=== PATIENT | male | born 1965 | race American Indian/Alaskan Native ===

== ENCOUNTER 2016-08-09 16:13 | Emergency (ER) | payer MEDICAID | END 2016-08-09 17:07 | disposition left against medical advice (07) | LOC: JP.ED 16:13 | DX: Z53.21 Procedure and treatment not carried out due to patient leaving prior to being seen by health care provider (principal) ==

== ENCOUNTER 2016-08-12 20:01 | Inpatient (IN) | payer MEDICAID ==
[2016-08-12] MEDS ORDERED: HYDROmorphone 0.5 MG/0.5 ML Syringe IVPUSH ONE ×2 (20:40→23:14)
[2016-08-12] MEDS ORDERED: Sodium Chloride 0.9% 1,000 ML IV SCH (20:45)
--- NOTE | 2016-08-12 20:46 | EDM.PDOC ---
ED HPI GENERAL MEDICAL PROBLEM - General Chief Complaint: Abdominal Pain Stated Complaint: abd pain Time Seen by Provider: 08/12/16 20:41 Source of Information: Reports: Patient History Limitations: Reports: Other (pt has been drinking but quit yesterday. ) - History of Present Illness INITIAL COMMENTS - FREE TEXT/NARRATIVE: Pt states he feels like his liver is failing. He has been vomiting coffee ground material and has been passing black looking stool. He had been doing some vomiting. Onset: Gradual Duration: Day(s): Location: Reports: Abdomen, Other ( Pt is having severe upper abdomanal pain. ) Associated Symptoms: Reports: Loss of Appetite, Nausea/Vomiting, Other ( loose dark stools. ) Left Abdomen Pain Score (Numeric/FACES): 9 - Related Data Allergies Allergy/AdvReac Type Severity Reaction Status Date / Time No Known Allergies Allergy Verified 08/12/16 20:14 Home Meds: Home Meds Gabapentin [Gabapentin] 400 mg PO BID 11/24/14 [History] Lisinopril [Lisinopril] 20 mg PO DAILY 11/24/14 [History] Buprenorphine HCl/Naloxone HCl [Suboxone 4 mg-1 mg Sl Film] 1 each SL QID [History] buPROPion [Wellbutrin XL] 150 mg PO BID 08/12/16 [History] Past Medical History Cardiovascular History: Reports: Hypertension Gastrointestinal History: Reports: Other (See Below) Other Gastrointestinal History: Past abdomenal pain Neurological History: Reports: Concussion Psychiatric History: Reports: Addiction, Depression Other Psychiatric History: ETOH addiction - Past Surgical History Other HEENT Surgeries/Procedures: Jaw Surgery GI Surgical History: Reports: Appendectomy Other Musculoskeletal Surgeries/Procedures:: Jaw Surgery Social & Family History - Tobacco Use Smoking Status *Q: Current Every Day Smoker Years of Tobacco use: 35 Packs/Tins Daily: 1 Used Tobacco, but Quit: No Second Hand Smoke Exposure: Yes - Caffeine Use Caffeine Use: Reports: Soda - Alcohol Use Days Per Week of Alcohol Use: 7 Number of Drinks Per Day: 6 Total Drinks Per Week: 42 - Recreational Drug Use Recreational Drug Use: No ED ROS GENERAL - Review of Systems Review Of Systems: See Below Constitutional: Reports: Weakness, Decreased Appetite HEENT: Reports: No Symptoms Respiratory: Reports: No Symptoms Cardiovascular: Reports: No Symptoms Endocrine: Reports: No Symptoms GI/Abdominal: Reports: Other (pt has pain in the upper abdoman. ) : Reports: No Symptoms Musculoskeletal: Reports: No Symptoms Skin: Reports: No Symptoms ED EXAM, GI/ABD - Physical Exam Exam: See Below Text/Narrative:: pt arrived with severe pain in his upper abdoman. he has been vomiting dark material and he has been passing some very dark stools. He has been drinking heavily but has not drank since yesterday. He denies street drugs. Exam Limited By: Other (pt is mildly intoxicated but is able to give a history.) General Appearance: Alert, Anxious, Moderate Distress Eyes: Bilateral: Normal Appearance, EOMI Ears: Normal TMs Nose: Normal Inspection Throat/Mouth: Normal Inspection Head: Atraumatic Neck: Normal Inspection Respiratory/Chest: No Respiratory Distress Cardiovascular: Regular Rate, Rhythm, Tachycardia GI/Abdominal: Tenderness, Other ( pt does not have a guarded abdoman. ) (Male) Exam: Deferred Rectal (Males) Exam: Other ( no masses present. There was some very smelling black looking fluid coming form the rectum that was positive for blood. ) Back Exam: Normal Inspection Extremities: Normal Inspection Neurological: Alert, Oriented, Normal Cognition, Other ( uncomfortable appearing ) Course - Vital Signs Last Recorded V/S: Last Vital Signs Temp 36.6 C 08/12/16 20:17 Pulse 110 H 08/12/16 20:17 Resp 16 08/12/16 20:17 BP 115/71 08/12/16 20:17 Pulse Ox 94 L 08/12/16 20:17 - Orders/Labs/Meds Orders: Active Orders 24 hr Category Date Time Status CRP [C-REACTIVE PROTEIN] [CHEM] Stat Lab 08/12/16 21:06 Ordered DRUG SCREEN, URINE [URCHEM] Stat Lab 08/12/16 20:30 Uncollected UA W/MICROSCOPIC [URIN] Urgent Lab 08/12/16 20:13 Uncollected Sodium Chloride 0.9% [Normal Saline] 1,000 ml Med 08/12/16 20:45 Active IV ASDIRECTED Medication Orders Sodium Chloride (Normal Saline) 1,000 mls @ 999 mls/hr IV ASDIRECTED HEIDY Last Admin: 08/12/16 20:47 Dose: 999 mls/hr Labs: Laboratory Tests 05/28/17 05/28/17 05/28/17 Range/Units 20:24 20:24 20:24 WBC 11.3 H (4.5-11.0) K/uL RBC 2.87 L (4.30-5.90) M/uL Hgb 9.5 L (12.0-15.0) g/dL Hct 26.8 L (40.0-54.0) % MCV 93 (80-98) fL MCH 33 H (27-31) pg MCHC 35 (32-36) % Plt Count 164 (150-400) K/uL Neut % (Auto) 64 (36-66) % Lymph % (Auto) 26 (24-44) % [place] % (Auto) 10 H (2-6) % Eos % (Auto) 0 L (2-4) % Baso % (Auto) 1 (0-1) % APTT (27.0-36.0) sec Sodium 134 L (140-148) mmol/L Potassium 3.4 L (3.6-5.2) mmol/L Chloride 98 L (100-108) mmol/L Carbon Dioxide 28 (21-32) mmol/L Anion Gap 11.4 (5.0-14.0) mmol/L BUN 12 (7-18) mg/dL Creatinine 0.7 L (0.8-1.3) mg/dL Est Cr Clr Drug Dosing TNP Estimated GFR (MDRD) > 60 (>60) Glucose 162 H (74-106) mg/dL Calcium 7.3 L (8.5-10.1) mg/dL Total Bilirubin 0.8 (0.2-1.0) mg/dL AST 124 H (15-37) U/L ALT 58 (12-78) U/L Alkaline Phosphatase 99 (46-116) U/L Total Protein 6.3 L (6.4-8.2) g/dL Albumin 2.6 L (3.4-5.0) g/dL Globulin 3.7 H (2.3-3.5) g/dL Albumin/Globulin Ratio 0.7 L (1.2-2.2) Lipase 231 (73-393) U/L Ethyl Alcohol mg/dL 08/12/16 08/12/16 Range/Units 20:33 20:51 WBC (4.5-11.0) K/uL RBC (4.30-5.90) M/uL Hgb (12.0-15.0) g/dL Hct (40.0-54.0) % MCV (80-98) fL MCH (27-31) pg MCHC (32-36) % Plt Count (150-400) K/uL Neut % (Auto) (36-66) % Lymph % (Auto) (24-44) % [place] % (Auto) (2-6) % Eos % (Auto) (2-4) % Baso % (Auto) (0-1) % APTT 25.7 L (27.0-36.0) sec Sodium (140-148) mmol/L Potassium (3.6-5.2) mmol/L Chloride (100-108) mmol/L Carbon Dioxide (21-32) mmol/L Anion Gap (5.0-14.0) mmol/L BUN (7-18) mg/dL Creatinine (0.8-1.3) mg/dL Est Cr Clr Drug Dosing Estimated GFR (MDRD) (>60) Glucose (74-106) mg/dL Calcium (8.5-10.1) mg/dL Total Bilirubin (0.2-1.0) mg/dL AST (15-37) U/L ALT (12-78) U/L Alkaline Phosphatase (46-116) U/L Total Protein (6.4-8.2) g/dL Albumin (3.4-5.0) g/dL Globulin (2.3-3.5) g/dL Albumin/Globulin Ratio (1.2-2.2) Lipase (73-393) U/L Ethyl Alcohol 112 mg/dL Meds: Medications Generic Name Dose Route Start Last Admin Trade Name Freq PRN Reason Stop Dose Admin Sodium Chloride 1,000 mls @ 999 mls/hr 08/12/16 20:45 08/12/16 20:47 Normal Saline IV 999 mls/hr ASDIRECTED HEIDY Administration Discontinued Medications Generic Name Dose Route Start Last Admin Trade Name Freq PRN Reason Stop Dose Admin Hydromorphone HCl 0.5 mg 08/12/16 20:40 08/12/16 20:49 Dilaudid IVPUSH 08/12/16 20:41 0.5 mg ONETIME ONE Administration Pantoprazole Sodium 40 mg 08/12/16 20:57 Protonix Iv IVPUSH 08/12/16 20:58 ONETIME ONE - Re-Assessments/Exams Free Text/Narrative Re-Assessment/Exam: 08/12/16 21:05 pt has a positive stool for blood. His hg is 9.5. His lipase is normal. He has been vomiting dark material. 08/12/16 21:13 Departure - Departure Time of Disposition: 21:13 Disposition: Admitted As Inpatient 66 Condition: fair Clinical Impression: GI bleeding, H/O ETOH abuse - Discharge Information Forms: ED Department Discharge Care Plan Goals: Admit to Dr Jon - My Orders Last 24 Hours: My Active Orders 08/12/16 20:13 UA W/MICROSCOPIC [URIN] Urgent 08/12/16 20:30 DRUG SCREEN, URINE [URCHEM] Stat 08/12/16 20:45 Sodium Chloride 0.9% [Normal Saline] 1,000 ml IV ASDIRECTED 08/12/16 21:06 CRP [C-REACTIVE PROTEIN] [CHEM] Stat - Assessment/Plan Last 24 Hours: My Active Orders 08/12/16 20:13 UA W/MICROSCOPIC [URIN] Urgent 08/12/16 20:30 DRUG SCREEN, URINE [URCHEM] Stat 08/12/16 20:45 Sodium Chloride 0.9% [Normal Saline] 1,000 ml IV ASDIRECTED 08/12/16 21:06 CRP [C-REACTIVE PROTEIN] [CHEM] Stat
[2016-08-12] MEDS ORDERED: Pantoprazole 40 MG Vial IVPUSH ONE ×2 (20:57→23:15)
[2016-08-12] MEDS ORDERED: Promethazine 25 MG Tab PO PRN (21:29)
[2016-08-12] MEDS ORDERED: Iopamidol 612 MG/ML 100 ML Bottle IV PRN (22:06)
[2016-08-12] MEDS ORDERED: Sodium Chloride 0.9% 80 ML IV SCH (22:15)
--- NOTE | 2016-08-12 22:43 | PCM.HP ---
H&P History of Present Illness - General Date of Service: 08/12/16 Admit Problem/Dx: Admission Diagnosis/Problem Admission Diagnosis/Problem Bleeding Source of Information: Patient History Limitations: Reports: No Limitations - History of Present Illness Initial Comments - Free Text/Narative: 50-year-old male with past medical history of opioid abuse, chronic back pain previously on methadone following with pain clinic at present has been taking Suboxone, gabapentin, significant alcohol abuse, liver cirrhosis, drug abuse, smoker, marijuana user, hypertension came to the ED with the concerns of bright red bleeding per rectum along with melena. Patient states that the bleeding started since last 2 days and associated with abdominal pain since last 3 days, cramping type pain, 4-5/10 in intensity, intermittent, patient denies any diarrhea, constipation. Last bowel movement was one day prior to the ED visit. Patient denies any recent fever, sick contacts. Patient doesn't have any PCP and not following with any GI physician for liver cirrhosis and alcohol abuse. Patient says that his last alcohol intake was yesterday. Denies any chest pain , breathing difficulty, exertional chest pain and palpitations. Patient denies any joint pains, skin rashes. Patient never followed with GI physician and denies any previous endoscopies, colonoscopies. Patient denies any recent weight loss. Patient CODE STATUS is full code In the Ed patient received 1000 mL of IV bolus and the dilaudid medication for the pain. Patient workup showed lipase is within normal limits, slight WBC elevation with hyponatremia, hypokalemia. Patient stool occult blood test is positive. Patient blood alcohol levels are positive, uterine marijuana drug screen is positive patient's CT did not show any acute findings. Other review of systems are not significant Left Abdomen Pain Score (Numeric/FACES): 9 - Related Data Allergies/Adverse Reactions: Allergies Allergy/AdvReac Type Severity Reaction Status Date / Time No Known Allergies Allergy Verified 08/12/16 20:14 Home Medications: Home Meds Gabapentin [Gabapentin] 400 mg PO BID 11/24/14 [History] Lisinopril [Lisinopril] 20 mg PO DAILY 11/24/14 [History] Buprenorphine HCl/Naloxone HCl [Suboxone 4 mg-1 mg Sl Film] 1 each SL QID [History] buPROPion [Wellbutrin XL] 150 mg PO BID 08/12/16 [History] Past Medical History Cardiovascular History: Reports: Hypertension Gastrointestinal History: Reports: Other (See Below) Other Gastrointestinal History: Past abdomenal pain Neurological History: Reports: Concussion Psychiatric History: Reports: Addiction, Depression Other Psychiatric History: ETOH addiction - Past Surgical History Other HEENT Surgeries/Procedures: Jaw Surgery GI Surgical History: Reports: Appendectomy Other Musculoskeletal Surgeries/Procedures:: Jaw Surgery Social & Family History - Tobacco Use Smoking Status *Q: Current Every Day Smoker Years of Tobacco use: 35 Packs/Tins Daily: 1 Used Tobacco, but Quit: No Second Hand Smoke Exposure: Yes - Caffeine Use Caffeine Use: Reports: Soda - Alcohol Use Days Per Week of Alcohol Use: 7 Number of Drinks Per Day: 6 Total Drinks Per Week: 42 - Recreational Drug Use Recreational Drug Use: No H&P Review of Systems - Review of Systems: Review Of Systems: See Below General: Reports: Weakness, Fatigue, Decreased Appetite, Weight Gain. Denies: Fever, Chills, Malaise, Night Sweats, Diaphoresis, Weight Loss HEENT: Reports: No Symptoms Pulmonary: Denies: Shortness of Breath, Wheezing, Pleuritic Chest Pain, Cough, Sputum Cardiovascular: Reports: Edema. Denies: Chest Pain, Palpitations, Dyspnea on Exertion, Orthopnea, Lightheadedness Gastrointestinal: Reports: Abdominal Pain, Anorexia, Black Stool, Bloody Stool, Constipation, Decreased Appetite, Distension, Melena, Nausea. Denies: Diarrhea , Difficulty Swallowing, Flatus, Hematemesis, Mucous in Stool, Stool Incontinence, Vomiting Genitourinary: Denies: Dysuria, Frequency Musculoskeletal: Reports: Neck Pain, Back Pain. Denies: Shoulder Pain, Arm Pain Skin: Denies: Cyanosis, Jaundice, Mottled, Pallor Psychiatric: Denies: Confusion, Depression, Mood Lability Neurological: Denies: Confusion, Dizziness, Headache Hematologic/Lymphatic: Reports: Anemia. Denies: Easy Bleeding, Easy Bruising Immunologic: Denies: Anaphylaxis, Food Allergy Exam - Exam Exam: See Below - Vital Signs Vital Signs: Last Vital Signs Temp 36.6 C 08/12/16 20:17 Pulse 102 H 08/12/16 22:08 Resp 15 08/12/16 22:08 BP 129/69 08/12/16 22:08 Pulse Ox 97 08/12/16 22:08 Weight: 117.48 kg - Exam Quality Assessment: No: Supplemental Oxygen General: Alert, Oriented, Cooperative, Moderate Distress Neck: Supple, Trachea Midline Lungs: Clear to Auscultation, Normal Respiratory Effort Cardiovascular: Regular Rate, Regular Rhythm, Tachycardia Abdomen: Normal Bowel Sounds, Soft, Distention, Tenderness, Hyperactive Bowel Sounds, Hepatomegaly. No: Organomegaly, Guarding, Rigidity, Rebound, Absent Bowel Sounds, Splenomegaly Extremities: Normal Pulses, Edema Skin: Warm, Dry, Intact Neurological: Cranial Nerves Intact, Reflexes Equal Bilateral Neuro Extensive - Mental Status: Alert, Memory Intact Neuro Extensive - Motor, Sensory, Reflexes: Normal Reflexes - Patient Data Lab Results last 24 hrs: Laboratory Results - last 24 hr 08/12/16 08/12/16 08/12/16 Range/Units 20:24 20:24 20:24 WBC 11.3 H (4.5-11.0) K/uL RBC 2.87 L (4.30-5.90) M/uL Hgb 9.5 L (12.0-15.0) g/dL Hct 26.8 L (40.0-54.0) % MCV 93 (80-98) fL MCH 33 H (27-31) pg MCHC 35 (32-36) % Plt Count 164 (150-400) K/uL Neut % (Auto) 64 (36-66) % Lymph % (Auto) 26 (24-44) % [place] % (Auto) 10 H (2-6) % Eos % (Auto) 0 L (2-4) % Baso % (Auto) 1 (0-1) % APTT (27.0-36.0) sec Sodium 134 L (140-148) mmol/L Potassium 3.4 L (3.6-5.2) mmol/L Chloride 98 L (100-108) mmol/L Carbon Dioxide 28 (21-32) mmol/L Anion Gap 11.4 (5.0-14.0) mmol/L BUN 12 (7-18) mg/dL Creatinine 0.7 L (0.8-1.3) mg/dL Est Cr Clr Drug Dosing TNP Estimated GFR (MDRD) > 60 (>60) Glucose 162 H (74-106) mg/dL Calcium 7.3 L (8.5-10.1) mg/dL Total Bilirubin 0.8 (0.2-1.0) mg/dL AST 124 H (15-37) U/L ALT 58 (12-78) U/L Alkaline Phosphatase 99 (46-116) U/L C-Reactive Protein (0.0-0.3) mg/dL Total Protein 6.3 L (6.4-8.2) g/dL Albumin 2.6 L (3.4-5.0) g/dL Globulin 3.7 H (2.3-3.5) g/dL Albumin/Globulin Ratio 0.7 L (1.2-2.2) Lipase 231 (73-393) U/L Ethyl Alcohol mg/dL 08/12/16 08/12/16 08/12/16 Range/Units 20:33 20:51 21:06 WBC (4.5-11.0) K/uL RBC (4.30-5.90) M/uL Hgb (12.0-15.0) g/dL Hct (40.0-54.0) % MCV (80-98) fL MCH (27-31) pg MCHC (32-36) % Plt Count (150-400) K/uL Neut % (Auto) (36-66) % Lymph % (Auto) (24-44) % [place] % (Auto) (2-6) % Eos % (Auto) (2-4) % Baso % (Auto) (0-1) % APTT 25.7 L (27.0-36.0) sec Sodium (140-148) mmol/L Potassium (3.6-5.2) mmol/L Chloride (100-108) mmol/L Carbon Dioxide (21-32) mmol/L Anion Gap (5.0-14.0) mmol/L BUN (7-18) mg/dL Creatinine (0.8-1.3) mg/dL Est Cr Clr Drug Dosing Estimated GFR (MDRD) (>60) Glucose (74-106) mg/dL Calcium (8.5-10.1) mg/dL Total Bilirubin (0.2-1.0) mg/dL AST (15-37) U/L ALT (12-78) U/L Alkaline Phosphatase (46-116) U/L C-Reactive Protein 0.32 H (0.0-0.3) mg/dL Total Protein (6.4-8.2) g/dL Albumin (3.4-5.0) g/dL Globulin (2.3-3.5) g/dL Albumin/Globulin Ratio (1.2-2.2) Lipase (73-393) U/L Ethyl Alcohol 112 mg/dL Result Diagrams: 08/13/16 05:00 08/13/16 05:00 Morales Results last 24 hrs: Microbiology 08/12/16 20:50 Stool Occult Blood (MORALES) - Final Stool / Feces *Q Meaningful Use (ADM) - VTE *Q VTE Criteria *Q: - Stroke *Q Stroke Criteria *Q: - AMI *Q AMI Criteria *Q: - Problem List (1) Abdominal pain SNOMED Code(s): 44131904 ICD Code: R10.9 - UNSPECIFIED ABDOMINAL PAIN Status: Acute Current Visit : Yes (2) Nausea SNOMED Code(s): 254128233 ICD Code: R11.0 - NAUSEA Status: Acute Current Visit: Yes (3) Marijuana abuse SNOMED Code(s): 32832309 ICD Code: F12.10 - CANNABIS ABUSE, UNCOMPLICATED Status: Acute Current Visit: Yes (4) Hypertension SNOMED Code(s): 46287105 ICD Code: I10 - ESSENTIAL (PRIMARY) HYPERTENSION Status: Acute Current Visit: Yes (5) Drug abuse, opioid type SNOMED Code(s): 7792634 ICD Code: F11.10 - OPIOID ABUSE, UNCOMPLICATED Status: Acute Current Visit: Yes (6) ALC (alcoholic liver cirrhosis) SNOMED Code(s): 221666125, 258049082 ICD Code: K70.30 - ALCOHOLIC CIRRHOSIS OF LIVER WITHOUT ASCITES Status: Acute Current Visit: Yes (7) Portal hypertension SNOMED Code(s): 93392668 ICD Code: K76.6 - PORTAL HYPERTENSION Status: Acute Current Visit: Yes (8) GI bleeding SNOMED Code(s): 88502127 ICD Code: K92.2 - GASTROINTESTINAL HEMORRHAGE, UNSPECIFIED Status: Acute Current Visit: Yes (9) H/O ETOH abuse SNOMED Code(s): 158327892 ICD Code: Z87.898 - PERSONAL HISTORY OF OTHER SPECIFIED CONDITIONS Status: Acute Current Visit: Yes Problem List Initiated/Reviewed/Updated: Yes Orders Last 24hrs: 50-year-old male with past medical history of significant alcohol abuse, chronic liver cirrhosis, portal hypertension, recurrent GI bleed, drug abuse, opiate abuse, chronic back pain, previous history of methadone use came to the ED with the complaining of abdominal pain associated with GI bleed, melena and diagnosed with alcohol-induced acute liver failure and acute GI bleeding and admitted into the inpatient service for further management (6) ALC (alcoholic liver cirrhosis) (7) Portal hypertension (8) GI bleeding (9) H/O ETOH abuse (5) Drug abuse, opioid type (1) Abdominal pain (2) Nausea (3) Marijuana abuse Patient complaining of abdominal pain at periumbilical area Patient CT showed chronic cirrhosis along with portal hypertension Patient had rectal bleeding along with melena and the occult blood test is positive Plan is to place him on pantoprazole drip Recheck H&H in 4 hours, admission CBC showed hemoglobin is 9.7 patient denies any chest pain, exertional chest pain, EKG showed sinus tachycardia We get ammonia, thiamine, B12, folate levels We'll consider starting lactulose based on ammonia levels With supplemental vitamins as per lab results Will place him on CIWA protocol and will treat with morphine 2 mg every 8 hourly as needed for pain with the concerns of previous opioid abuse We'll discontinue Tylenol Will repeat CBC, CMP tomorrow Consulted surgery for possible endoscopic, colonoscopy Will follow the lab results IV fluids for maintenance, nothing by mouth for now (4) Hypertension We will hold on blood pressure medication at this point GI prophylaxis pantoprazole drip, DVT prophylaxis mechanical CODE STATUS full code IV fluids NS with 20 mg KCl 100 mL per hour Diet nothing by mouth
[2016-08-12] MEDS ORDERED: Pantoprazole 40 MG in Sodium Chloride 0.9% 100 ML IV SCH (23:00)
[2016-08-12] MEDS ORDERED: Acetaminophen 650 MG Supp RECTAL PRN (23:18)
[2016-08-13] MEDS: NS + KCl 20mEq/L 1,000 ML IV SCH ×3 (00:09→22:10)
[2016-08-13] MEDS ORDERED: Sodium Chloride 0.9% 100 ML with Pantoprazole 80 MG IV SCH ×2 (02:30)
[2016-08-13] MEDS ORDERED: Pantoprazole 80 MG in Sodium Chloride 0.9% 100 ML IV SCH ×2 (02:45→12:45)
[2016-08-13] MEDS: Morphine 2 MG/ML Syringe IVPUSH PRN ×3 (05:36→22:09)
[2016-08-13] MEDS ORDERED: Pantoprazole 40 MG Vial IVPUSH SCH (09:00)
[2016-08-13] MEDS ORDERED: Midazolam 1 MG/ML 2 ML SDV ONE (09:22)
[2016-08-13] MEDS ORDERED: Propofol 200 MG/20 ML SDV ONE (09:22)
[2016-08-13] MEDS ORDERED: fentaNYL 100 MCG/2 ML SDV ONE (09:22)
--- NOTE | 2016-08-13 12:02 | PCM.PN ---
- General Info Date of Service: 08/13/16 Functional Status: Reports: pain controlled, ambulating, urinating - Review of Systems General: Reports: No Symptoms Pulmonary: Reports: no symptoms Cardiovascular: Reports: No Symptoms Gastrointestinal: Reports: Abdominal pain, Melena. Denies: Constipation, Diarrhea, Difficulty swallowing, Hematochezia, Nausea, Vomiting Systems Review Comment:: This patient is a 50-year-old gentleman who was admitted through the emergency department last night for further evaluation and management of epigastric and left upper quadrant abdominal pain as well as probable GI bleed. He had a history of nausea vomiting with melenic-appearing stools and coffee-ground emesis. Since admission hemoglobin has dropped only slightly, likely secondary to dilution from hydration. EGD was performed this morning by Dr. Grajeda and showed no significant abnormalities other than a plaque at the esophagogastric junction. Patient is willing to proceed with further evaluation including colonoscopy. He has a long-standing history of alcohol abuse and has been drinking heavily over the past week. He has started to show mild evidence of alcohol withdrawal. - Patient Data Vitals - most recent: Last Vital Signs Temp 97.3 F 08/13/16 10:30 Pulse 85 08/13/16 10:45 Resp 18 08/13/16 10:45 BP 138/74 08/13/16 10:45 Pulse Ox 96 08/13/16 10:55 Weight - most recent: 252 lb I&O - last 24 hours: Intake & Output 08/12/16 08/13/16 08/13/16 22:59 06:59 14:59 Intake Total 587 100 Output Total 300 Balance 287 100 Lab Results last 24 hrs: Laboratory Results - last 24 hr 08/12/16 08/12/16 08/12/16 Range/Units 22:44 22:46 22:46 WBC (4.5-11.0) K/uL RBC (4.30-5.90) M/uL Hgb (12.0-15.0) g/dL Hct (40.0-54.0) % MCV (80-98) fL MCH (27-31) pg MCHC (32-36) % Plt Count (150-400) K/uL PT (9.5-12.0) sec INR (0.80-1.20) Sodium (140-148) mmol/L Potassium (3.6-5.2) mmol/L Chloride (100-108) mmol/L Carbon Dioxide (21-32) mmol/L Anion Gap (5.0-14.0) mmol/L BUN (7-18) mg/dL Creatinine (0.8-1.3) mg/dL Est Cr Clr Drug Dosing mL/min Estimated GFR (MDRD) (>60) Glucose (74-106) mg/dL Calcium (8.5-10.1) mg/dL Total Bilirubin (0.2-1.0) mg/dL AST (15-37) U/L ALT (12-78) U/L Alkaline Phosphatase (46-116) U/L Ammonia 70 H (11-32) mmol/L Total Protein (6.4-8.2) g/dL Albumin (3.4-5.0) g/dL Globulin (2.3-3.5) g/dL Albumin/Globulin Ratio (1.2-2.2) Vitamin B12 (193-986) pg/ml Folate (8.6-58.9) ng/ml Urine Color Yellow Urine Appearance Clear Urine pH 6.0 (4.5-8.0) Ur Specific [place] 1.015 (1.008-1.030) Urine Protein Negative (NEGATIVE) mg/dL Urine Glucose (UA) Normal (NEGATIVE) mg/dL Urine Ketones Negative (NEGATIVE) mg/dL Urine Occult Blood Negative (NEGATIVE) Urine Nitrite Negative (NEGAITVE) Urine Bilirubin Small (NEGATIVE) Urine Urobilinogen >=12 H (NORMAL) mg/dL Ur Leukocyte Esterase Negative (NEGATIVE) Urine RBC Not seen (0-5) Urine WBC Not seen (0-5) Ur Epithelial Cells Not seen Amorphous Sediment Not seen Urine Bacteria Not seen Urine Mucus Rare Urine Opiates Screen Positive H (NEGATIVE) Ur Oxycodone Screen Negative (NEGATIVE) Urine Methadone Screen Negative (NEGATIVE) Ur Propoxyphene Screen Negative (NEGATIVE) Ur Barbiturates Screen Negative (NEGATIVE) Ur Tricyclics Screen Negative (NEGATIVE) Ur Phencyclidine Scrn Negative (NEGATIVE) Ur Amphetamine Screen Negative (NEGATIVE) U Methamphetamines Scrn Negative (NEGATIVE) Urine MDMA Screen Negative (NEGATIVE) U Benzodiazepines Scrn Negative (NEGATIVE) U Cocaine Metab Screen Negative (NEGATIVE) U Marijuana (THC) Screen Positive H (NEGATIVE) Blood Type Gel Antibody Screen Crossmatch 08/12/16 08/13/16 08/13/16 Range/Units 22:47 02:00 05:00 WBC (4.5-11.0) K/uL RBC (4.30-5.90) M/uL Hgb 8.9 L (12.0-15.0) g/dL Hct 25.6 L (40.0-54.0) % MCV (80-98) fL MCH (27-31) pg MCHC (32-36) % Plt Count (150-400) K/uL PT 13.0 H (9.5-12.0) sec INR 1.22 H (0.80-1.20) Sodium 135 L (140-148) mmol/L Potassium 3.6 (3.6-5.2) mmol/L Chloride 100 (100-108) mmol/L Carbon Dioxide 28 (21-32) mmol/L Anion Gap 10.6 (5.0-14.0) mmol/L BUN 12 (7-18) mg/dL Creatinine 0.8 (0.8-1.3) mg/dL Est Cr Clr Drug Dosing 121.25 mL/min Estimated GFR (MDRD) > 60 (>60) Glucose 139 H (74-106) mg/dL Calcium 7.3 L (8.5-10.1) mg/dL Total Bilirubin 1.0 (0.2-1.0) mg/dL AST 114 H (15-37) U/L ALT 53 (12-78) U/L Alkaline Phosphatase 94 (46-116) U/L Ammonia (11-32) mmol/L Total Protein 6.0 L (6.4-8.2) g/dL Albumin 2.5 L (3.4-5.0) g/dL Globulin 3.5 (2.3-3.5) g/dL Albumin/Globulin Ratio 0.7 L (1.2-2.2) Vitamin B12 396 (193-986) pg/ml Folate 4.2 L (8.6-58.9) ng/ml Urine Color Urine Appearance Urine pH (4.5-8.0) Ur Specific [place] (1.008-1.030) Urine Protein (NEGATIVE) mg/dL Urine Glucose (UA) (NEGATIVE) mg/dL Urine Ketones (NEGATIVE) mg/dL Urine Occult Blood (NEGATIVE) Urine Nitrite (NEGAITVE) Urine Bilirubin (NEGATIVE) Urine Urobilinogen (NORMAL) mg/dL Ur Leukocyte Esterase (NEGATIVE) Urine RBC (0-5) Urine WBC (0-5) Ur Epithelial Cells Amorphous Sediment Urine Bacteria Urine Mucus Urine Opiates Screen (NEGATIVE) Ur Oxycodone Screen (NEGATIVE) Urine Methadone Screen (NEGATIVE) Ur Propoxyphene Screen (NEGATIVE) Ur Barbiturates Screen (NEGATIVE) Ur Tricyclics Screen (NEGATIVE) Ur Phencyclidine Scrn (NEGATIVE) Ur Amphetamine Screen (NEGATIVE) U Methamphetamines Scrn (NEGATIVE) Urine MDMA Screen (NEGATIVE) U Benzodiazepines Scrn (NEGATIVE) U Cocaine Metab Screen (NEGATIVE) U Marijuana (THC) Screen (NEGATIVE) Blood Type Gel Antibody Screen Crossmatch 08/13/16 08/13/16 Range/Units 05:00 05:00 WBC 8.8 (4.5-11.0) K/uL RBC 2.63 L (4.30-5.90) M/uL Hgb 8.9 L (12.0-15.0) g/dL Hct 24.9 L (40.0-54.0) % MCV 95 (80-98) fL MCH 34 H (27-31) pg MCHC 36 (32-36) % Plt Count 152 (150-400) K/uL PT (9.5-12.0) sec INR (0.80-1.20) Sodium (140-148) mmol/L Potassium (3.6-5.2) mmol/L Chloride (100-108) mmol/L Carbon Dioxide (21-32) mmol/L Anion Gap (5.0-14.0) mmol/L BUN (7-18) mg/dL Creatinine (0.8-1.3) mg/dL Est Cr Clr Drug Dosing mL/min Estimated GFR (MDRD) (>60) Glucose (74-106) mg/dL Calcium (8.5-10.1) mg/dL Total Bilirubin (0.2-1.0) mg/dL AST (15-37) U/L ALT (12-78) U/L Alkaline Phosphatase (46-116) U/L Ammonia (11-32) mmol/L Total Protein (6.4-8.2) g/dL Albumin (3.4-5.0) g/dL Globulin (2.3-3.5) g/dL Albumin/Globulin Ratio (1.2-2.2) Vitamin B12 (193-986) pg/ml Folate (8.6-58.9) ng/ml Urine Color Urine Appearance Urine pH (4.5-8.0) Ur Specific [place] (1.008-1.030) Urine Protein (NEGATIVE) mg/dL Urine Glucose (UA) (NEGATIVE) mg/dL Urine Ketones (NEGATIVE) mg/dL Urine Occult Blood (NEGATIVE) Urine Nitrite (NEGAITVE) Urine Bilirubin (NEGATIVE) Urine Urobilinogen (NORMAL) mg/dL Ur Leukocyte Esterase (NEGATIVE) Urine RBC (0-5) Urine WBC (0-5) Ur Epithelial Cells Amorphous Sediment Urine Bacteria Urine Mucus Urine Opiates Screen (NEGATIVE) Ur Oxycodone Screen (NEGATIVE) Urine Methadone Screen (NEGATIVE) Ur Propoxyphene Screen (NEGATIVE) Ur Barbiturates Screen (NEGATIVE) Ur Tricyclics Screen (NEGATIVE) Ur Phencyclidine Scrn (NEGATIVE) Ur Amphetamine Screen (NEGATIVE) U Methamphetamines Scrn (NEGATIVE) Urine MDMA Screen (NEGATIVE) U Benzodiazepines Scrn (NEGATIVE) U Cocaine Metab Screen (NEGATIVE) U Marijuana (THC) Screen (NEGATIVE) Blood Type O POSITIVE Gel Antibody Screen Negative Crossmatch See Detail Med Orders - Current: Current Medications Acetaminophen (Tylenol) 650 mg RECTAL Q8H PRN PRN Reason: Pain Last Admin: 08/13/16 04:40 Dose: 650 mg Gabapentin (Neurontin) 400 mg PO TID [facility] Hydromorphone HCl (Dilaudid) 0.5 mg IVPUSH Q4H PRN PRN Reason: Pain Sodium Chloride (Normal Saline) 1,000 mls @ 999 mls/hr IV ASDIRECTED [facility] Last Admin: 08/12/16 20:47 Dose: 999 mls/hr Potassium Chloride/Sodium Chloride (Normal Saline With 20 Meq Kcl) 1,000 mls @ 100 mls/hr IV ASDIRECTED [facility] Last Admin: 08/13/16 10:53 Dose: 100 mls/hr Lorazepam (Ativan) 0 mg IV ASDIRECTED [facility] PRN Reason: Protocol Morphine Sulfate (Morphine) 2 mg IVPUSH Q8H PRN PRN Reason: Pain Last Admin: 08/13/16 05:36 Dose: 2 mg Pantoprazole Sodium (Protonix) 40 mg PO DAILY [facility] Promethazine HCl (Phenergan) 25 mg PO Q6H PRN PRN Reason: Nausea able to take PO Discontinued Medications Fentanyl (Sublimaze) Confirm Administered Dose 100 mcg .ROUTE .STK-MED ONE Stop: 08/13/16 09:23 Hydromorphone HCl (Dilaudid) 0.5 mg IVPUSH ONETIME ONE Stop: 08/12/16 20:41 Last Admin: 08/12/16 20:49 Dose: 0.5 mg Hydromorphone HCl (Dilaudid) 0.5 mg IVPUSH ONETIME ONE Stop: 08/12/16 23:15 Last Admin: 08/12/16 23:24 Dose: 0.5 mg Sodium Chloride (Normal Saline) 80 mls @ 3 mls/sec IV ASDIRECTED [facility] Last Admin: 08/12/16 22:23 Dose: 3 mls/sec Pantoprazole Sodium 40 mg/ (Sodium Chloride) 100 mls @ 200 mls/hr IV Q12H [facility] Last Admin: 08/13/16 04:53 Dose: Not Given Pantoprazole Sodium 80 mg/ (Sodium Chloride) 100 mls @ 10 mls/hr IV .Q10H [facility] Last Admin: 08/13/16 04:53 Dose: Not Given Pantoprazole Sodium 80 mg/ (Sodium Chloride) 100 mls @ 10 mls/hr IV ASDIRECTED [facility] Last Admin: 08/13/16 02:52 Dose: 10 mls/hr Pantoprazole Sodium 80 mg/ (Sodium Chloride) 100 mls @ 10 mls/hr IV Q10H [facility] Iopamidol (Isovue-300 (61%)) 100 ml IV . DIRECTED PRN PRN Reason: RADIOLOGY EXAM Stop: 08/13/16 22:07 Last Admin: 08/12/16 22:22 Dose: 100 ml Midazolam HCl (Versed 1 Mg/Ml) Confirm Administered Dose 2 mg .ROUTE .STK-MED ONE Stop: 08/13/16 09:23 Pantoprazole Sodium (Protonix Iv) 40 mg IVPUSH ONETIME ONE Stop: 08/12/16 20:58 Last Admin: 08/12/16 21:18 Dose: 40 mg Pantoprazole Sodium (Protonix Iv) 40 mg IVPUSH Q12H [facility] Pantoprazole Sodium (Protonix Iv) 40 mg IVPUSH ONETIME ONE Stop: 08/12/16 23:16 Last Admin: 08/13/16 00:12 Dose: Not Given Propofol (Diprivan 20 Ml) Confirm Administered Dose 200 mg .ROUTE .STK-MED ONE Stop: 08/13/16 09:23 - Exam General: alert, oriented, cooperative Lungs: Clear to auscultation, Normal respiratory effort Cardiovascular: Regular Rate, Regular Rhythm Abdomen: bowel sounds present, soft, no distension, tenderness. No: rigidity, rebound, guarding Extremities: no edema Skin: warm, dry, intact - Problem List Review Problem List Initiated/Reviewed/Updated: Yes - My Orders Last 24 Hours: My Active Orders 08/13/16 11:53 HYDROmorphone [Dilaudid] 0.5 mg IVPUSH Q4H PRN 08/13/16 14:00 Gabapentin [Neurontin] 400 mg PO TID 08/13/16 17:00 HGB [HEMOGLOBIN] [HEME] Stat 08/13/16 Lunch Clear Liquid Diet [DIET] 08/14/16 05:00 BASIC METABOLIC PANEL,BMP [CHEM] Timed CBC WITH AUTO DIFF [HEME] Timed 08/14/16 09:00 Pantoprazole [ProTONIX] 40 mg PO DAILY 08/14/16 Breakfast NPO After Midnight [Nothing per Oral After Midnight Diet] [DIET] - Plan Plan:: ASSESSMENT AND PLAN ABDOMINAL PAIN AND POSSIBLE GI BLEED-he is been stable since admission with no further evidence of active bleeding. EGD performed today was unremarkable for obvious bleeding source. -Colonoscopy prep for colonoscopy tomorrow -Serial hemoglobin levels -Protonix 40 mg by mouth daily HISTORY OF ALCOHOL ABUSE AND DEPENDENCE-is been consuming alcohol heavily over the past week denies significant use prior to that for the past few months. Showing mild evidence of withdrawal and he is interested in detox if required. -Gabapentin 400 mg by mouth 3 times a day for 4 days then 200 mg by mouth 3 times a day for 4 days -Continue alcohol withdrawal protocol MAINTENANCE ISSUES -DVT prophylaxis; SCUDs -GI prophylaxis; Protonix -Miramontes catheter; not indicated -Nutrition; clear liquid diet n.p.o. after midnight -Nicotine dependence; not required CODE STATUS- FULL CODE ADMISSION STATUS-patient will be admitted to inpatient status, expect at least a 2 night hospital stay for evaluation and management of problems as outlined above. At the time of this admission I do not reasonably expected evaluation and management of this problem will require more than a 96 hour hospital stay. DISPOSITION-anticipate discharge to home after the hospital stay. PRIMARY CARE PROVIDER-
[2016-08-13] MEDS: HYDROmorphone 0.5 MG/0.5 ML Syringe IVPUSH PRN ×3 (12:14→20:26)
[2016-08-13] MEDS ORDERED: Bisacodyl 5 MG Tab PO ONE ×2 (12:30→20:00)
[2016-08-13] MEDS: Gabapentin 400 MG Cap PO SCH ×2 (13:22→20:25)
[2016-08-13] MEDS ORDERED: Polyethylene Glycol 3350 Powder 238 GM Bot PO ONE (17:00)
[2016-08-13] MEDS: LORazepam 2 MG/ML MDV IV SCH ×2 (19:38→22:58)
[2016-08-13] MEDS: Nicotine 21 MG/24 Hr Patch TRDERM SCH (21:14)
[2016-08-14] MEDS: HYDROmorphone 0.5 MG/0.5 ML Syringe IVPUSH PRN ×3 (00:26→11:18)
[2016-08-14] MEDS: LORazepam 2 MG/ML MDV IV SCH ×2 (02:07→08:02)
[2016-08-14] MEDS: Morphine 2 MG/ML Syringe IVPUSH PRN (06:15)
[2016-08-14] MEDS ORDERED: Pantoprazole 40 MG Tab.CR PO SCH (07:30)
--- NOTE | 2016-08-14 07:44 | OR ---
DATE OF PROCEDURE: 08/12/2016 PROCEDURE: Esophagogastroduodenoscopy. FINDINGS: 1. No evidence of esophageal bleeding. 2. No esophageal varices. 3. Mild inflammation of the GE junction (biopsied, with limited biopsy due to concern of esophageal bleeding). COMPLICATIONS: None. CAGE MAKER: None. ANESTHESIA: MAC. PREOPERATIVE DIAGNOSIS: Gastrointestinal bleeding. POSTOPERATIVE DIAGNOSIS: Gastrointestinal bleeding. Risk: Risks, benefits, alternatives, and limitations, including, but not limited to infection, bleeding, and perforation were explained to the patient and the patient wished to proceed. PROCEDURE IN DETAIL: The patient was placed in left lateral decubitus position. The EGD scope was then advanced atraumatically in to the second part of the duodenum. There was no evidence of bleeding, esophageal bleeding, or other abnormalities except for a patulous type lesion at the GE junction which was biopsied using cold biopsy forceps. The esophagus was normal. The patient tolerated the procedure well. Anthony Grajeda MD /[id number]
[2016-08-14] MEDS: NS + KCl 20mEq/L 1,000 ML IV SCH (08:10)
[2016-08-14] MEDS: Gabapentin 400 MG Cap PO SCH (08:29)
[2016-08-14] MEDS ORDERED: Propofol 200 MG/20 ML SDV ONE (08:43)
[2016-08-14] MEDS ORDERED: fentaNYL 100 MCG/2 ML SDV ONE (08:43)
[2016-08-14] MEDS ORDERED: Midazolam 1 MG/ML 2 ML SDV ONE (08:43)
[2016-08-14] MEDS ORDERED: Potassium Chloride 20 MEQ Tab.ER PO ONE (10:00)
--- NOTE | 2016-08-14 11:00 | OR ---
DATE OF PROCEDURE: 08/14/2016 PROCEDURE PERFORMED: Colonoscopy. FINDINGS: 1. Diverticulosis, mild, limited to sigmoid colon. 2. No evidence of old or new blood. 3. Transverse colon polyp, 5 mm, completely removed using cold biopsy forceps. 4. Sigmoid colon polyp, 5 mm, completely removed using cold biopsy forceps. 5. Rectal polyp, 5 mm, completely removed using cold biopsy forceps. PREOPERATIVE DIAGNOSIS: Gastrointestinal bleeding. POSTOPERATIVE DIAGNOSIS: Gastrointestinal bleeding. COMPLICATIONS: None. ASSISTANTS: None. RISKS: Risks, benefits, alternatives, and limitations including, but not limited to infection, bleeding, and perforation were explained to the patient, and they wished to proceed. PROCEDURE IN DETAIL: The patient was placed in left lateral decubitus position. A digital rectal exam was performed without abnormality. The scope was then advanced atraumatically to the ileocecal valve. The scope was brought back to the ascending, transverse, and descending colon polyps and retroflexed. The aforementioned polyps were identified and completely removed. The diverticulosis would be described as not bleeding, mild and mostly concentrated in the sigmoid colon. Anthony Grajeda MD /[id number]
[2016-08-14 11:04] VITALS: BP 152/77
[2016-08-14] MEDS: Nicotine 21 MG/24 Hr Patch TRDERM SCH (11:19)
--- NOTE | 2016-08-14 13:19 | PCM.DCSUM1 ---
Discharge Summary - Hospital Course Brief History: This patient is a 50-year-old gentleman who is admitted through the emergency department with a recent history of coffee-ground emesis and melenic-appearing stools, heme positive stool on evaluation. - Discharge Data Discharge Date: 08/14/16 Discharge Disposition: Home, Self-Care 01 Condition: Fair - Discharge Diagnosis/Problem(s) (1) Acute blood loss anemia SNOMED Code(s): 391016780 ICD Code: D62 - ACUTE POSTHEMORRHAGIC ANEMIA Status: Acute Current Visit : Yes (2) GI bleeding SNOMED Code(s): 29684105 ICD Code: K92.2 - GASTROINTESTINAL HEMORRHAGE, UNSPECIFIED Status: Acute Current Visit: Yes (3) ALC (alcoholic liver cirrhosis) SNOMED Code(s): 898753500, 534809795 ICD Code: K70.30 - ALCOHOLIC CIRRHOSIS OF LIVER WITHOUT ASCITES Status: Acute Current Visit: Yes - Patient Summary/Data Consults: Consultations 08/13/16 07:00 Consult to Physician [CONS] Routine Consulting Provider: Anthony Grajeda Call Completed to Consulting Physician: No Reason for Consult: gi bleed Hospital Course: This patient has had a long-standing history of alcohol abuse, he reports he did not consumed alcohol for several months up until the past week. 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 He began to feel more weak and lightheaded and noted coffee-ground emesis as well as melenic-appearing stools. On initial assessment hemoglobin was found to be low at 9.5 and stool was found to be Hemoccult positive. CT scan of the abdomen and pelvis was obtained and showed evidence of cirrhosis but no other significant abnormalities. He was admitted to the hospital and given IV fluids for hydration, serial hemoglobin levels were monitored. Hemoglobin level did decrease during hospitalization but this was felt to be consistent with delusional factors after he received IV fluids. He was started on Protonix continuous infusion, and later transitioned to oral Protonix. Dr. Grajeda was consulted for surgical opinion, EGD was performed and showed no evidence of esophageal varices. He did have a lesion at the esophagogastric junction that was biopsied, biopsy results are pending at the time of discharge. No significant bleeding lesions or source of potential bleeding were noted in the stomach or first portion of the duodenum. He then underwent a colonoscopy prep and colonoscopy was performed on the day of discharge. He had 2 small polyps that were removed removed and scattered diverticuli but no other obvious source of bleeding or evidence of active bleeding. He will be discharged home on oral Protonix as well as iron supplement. Followup appointment should be scheduled with his primary care provider within one week in hemoglobin should be obtained at that time. Activity will be as tolerated and he's instructed to follow a soft mechanical diet over the next week. - Patient Instructions Diet: GI Soft/Low Residue/Low Fiber Activity: As Tolerated Other/Special Instructions: Please schedule followup appointment with primary care provider within one week. Hemoglobin level should be obtained at the time of followup appointment. - Discharge Plan Prescriptions/Med Rec: Iron PS Complex & Vit B12/FA [Ferrex 150 Forte] 1 cap PO BID #60 cap Pantoprazole [ProTONIX] 40 mg PO DAILY@0730 #30 tab.cr Home Medications: Home Meds Gabapentin 400 mg PO BID 11/24/14 [History] Lisinopril 20 mg PO DAILY 11/24/14 [History] Buprenorphine HCl/Naloxone HCl [Suboxone 4 mg-1 mg Sl Film] 1 each SL QID [History] buPROPion [buPROPion XL] 150 mg PO BID 08/12/16 [History] Iron PS Complex & Vit B12/FA [Ferrex 150 Forte] 1 cap PO BID #60 cap 08/14/16 [ Rx] Pantoprazole [ProTONIX] 40 mg PO DAILY@0730 #30 tab.cr 08/14/16 [Rx] Referrals: PCP,None [Primary Care Provider] - - Patient Data Vitals - Most Recent: Last Vital Signs Temp 98.6 F 08/14/16 10:10 Pulse 106 H 08/14/16 11:00 Resp 18 08/14/16 11:00 BP 152/77 H 08/14/16 11:00 Pulse Ox 98 08/14/16 11:00 Weight - Most Recent: 251 lb 15.99 oz I&O - Last 24 hours: Intake & Output 08/13/16 08/14/16 08/14/16 22:59 06:59 14:59 Intake Total 1110 2699 Output Total 200 200 Balance 910 2699 -200 Lab Results - Last 24 hrs: Laboratory Results - last 24 hr 08/13/16 08/14/16 08/14/16 Range/Units 16:59 05:00 05:00 WBC 6.4 (4.5-11.0) K/uL RBC 2.47 L (4.30-5.90) M/uL Hgb 8.3 L 8.3 L (12.0-15.0) g/dL Hct 23.6 L (40.0-54.0) % MCV 96 (80-98) fL MCH 34 H (27-31) pg MCHC 35 (32-36) % Plt Count 138 L (150-400) K/uL Neut % (Auto) 57 (36-66) % Lymph % (Auto) 29 (24-44) % [place] % (Auto) 10 H (2-6) % Eos % (Auto) 4 (2-4) % Baso % (Auto) 1 (0-1) % Sodium 136 L (140-148) mmol/L Potassium 3.5 L (3.6-5.2) mmol/L Chloride 104 (100-108) mmol/L Carbon Dioxide 29 (21-32) mmol/L Anion Gap 6.5 (5.0-14.0) mmol/L BUN 9 (7-18) mg/dL Creatinine 0.8 (0.8-1.3) mg/dL Est Cr Clr Drug Dosing 121.25 mL/min Estimated GFR (MDRD) > 60 (>60) Glucose 104 (74-106) mg/dL Calcium 7.1 L (8.5-10.1) mg/dL Med Orders - Current: Current Medications Gabapentin (Neurontin) 400 mg PO TID [facility] Last Admin: 08/14/16 08:29 Dose: Not Given Hydromorphone HCl (Dilaudid) 0.5 mg IVPUSH Q4H PRN PRN Reason: Pain Last Admin: 08/14/16 11:18 Dose: 0.5 mg Potassium Chloride/Sodium Chloride (Normal Saline With 20 Meq Kcl) 1,000 mls @ 100 mls/hr IV ASDIRECTED [facility] Last Admin: 08/14/16 08:10 Dose: 100 mls/hr Lorazepam (Ativan) 0 mg IV ASDIRECTED [facility] PRN Reason: Protocol Last Admin: 08/14/16 08:02 Dose: 1 mg Morphine Sulfate (Morphine) 2 mg IVPUSH Q8H PRN PRN Reason: Pain Last Admin: 08/14/16 06:15 Dose: 2 mg Nicotine (Habitrol) 21 mg TRDERM DAILY [facility] Last Admin: 08/14/16 11:19 Dose: 21 mg Pantoprazole Sodium (Protonix) 40 mg PO DAILY@0730 [facility] Last Admin: 08/14/16 07:39 Dose: Not Given Promethazine HCl (Phenergan) 25 mg PO Q6H PRN PRN Reason: Nausea able to take PO Discontinued Medications Acetaminophen (Tylenol) 650 mg RECTAL Q8H PRN PRN Reason: Pain Last Admin: 08/13/16 04:40 Dose: 650 mg Bisacodyl (Dulcolax) 10 mg PO ONETIME ONE Stop: 08/13/16 12:31 Last Admin: 08/13/16 13:22 Dose: 10 mg Bisacodyl (Dulcolax) 10 mg PO ONETIME ONE Stop: 08/13/16 20:01 Last Admin: 08/13/16 20:25 Dose: 10 mg Fentanyl (Sublimaze) Confirm Administered Dose 100 mcg .ROUTE .STK-MED ONE Stop: 08/13/16 09:23 Fentanyl (Sublimaze) Confirm Administered Dose 100 mcg .ROUTE .STK-MED ONE Stop: 08/14/16 08:44 Hydromorphone HCl (Dilaudid) 0.5 mg IVPUSH ONETIME ONE Stop: 08/12/16 20:41 Last Admin: 08/12/16 20:49 Dose: 0.5 mg Hydromorphone HCl (Dilaudid) 0.5 mg IVPUSH ONETIME ONE Stop: 08/12/16 23:15 Last Admin: 08/12/16 23:24 Dose: 0.5 mg Sodium Chloride (Normal Saline) 1,000 mls @ 999 mls/hr IV ASDIRECTED [facility] Last Admin: 08/12/16 20:47 Dose: 999 mls/hr Sodium Chloride (Normal Saline) 80 mls @ 3 mls/sec IV ASDIRECTED [facility] Last Admin: 08/12/16 22:23 Dose: 3 mls/sec Pantoprazole Sodium 40 mg/ (Sodium Chloride) 100 mls @ 200 mls/hr IV Q12H [facility] Last Admin: 08/13/16 04:53 Dose: Not Given Pantoprazole Sodium 80 mg/ (Sodium Chloride) 100 mls @ 10 mls/hr IV .Q10H [facility] Last Admin: 08/13/16 04:53 Dose: Not Given Pantoprazole Sodium 80 mg/ (Sodium Chloride) 100 mls @ 10 mls/hr IV ASDIRECTED [facility] Last Admin: 08/13/16 02:52 Dose: 10 mls/hr Pantoprazole Sodium 80 mg/ (Sodium Chloride) 100 mls @ 10 mls/hr IV Q10H [facility] Iopamidol (Isovue-300 (61%)) 100 ml IV . DIRECTED PRN PRN Reason: RADIOLOGY EXAM Stop: 08/13/16 22:07 Last Admin: 08/12/16 22:22 Dose: 100 ml Midazolam HCl (Versed 1 Mg/Ml) Confirm Administered Dose 2 mg .ROUTE .STK-MED ONE Stop: 08/13/16 09:23 Midazolam HCl (Versed 1 Mg/Ml) Confirm Administered Dose 2 mg .ROUTE .STK-MED ONE Stop: 08/14/16 08:44 Pantoprazole Sodium (Protonix Iv) 40 mg IVPUSH ONETIME ONE Stop: 08/12/16 20:58 Last Admin: 08/12/16 21:18 Dose: 40 mg Pantoprazole Sodium (Protonix Iv) 40 mg IVPUSH Q12H [facility] Pantoprazole Sodium (Protonix Iv) 40 mg IVPUSH ONETIME ONE Stop: 08/12/16 23:16 Last Admin: 08/13/16 00:12 Dose: Not Given Polyethylene Glycol (Miralax) 238 gm PO ONETIME ONE Stop: 08/13/16 17:01 Last Admin: 08/13/16 16:12 Dose: 238 gram Potassium Chloride (Klor-Con M20) 40 meq PO ONETIME ONE Stop: 08/14/16 10:01 Last Admin: 08/14/16 13:14 Dose: Not Given Propofol (Diprivan 20 Ml) Confirm Administered Dose 200 mg .ROUTE .STK-MED ONE Stop: 08/13/16 09:23 Propofol (Diprivan 20 Ml) Confirm Administered Dose 200 mg .ROUTE .STK-MED ONE Stop: 08/14/16 08:44 *Q Meaningful Use (DIS) - VTE *Q VTE Criteria *Q: - Stroke *Q Stroke Criteria *Q: - AMI *Q AMI Criteria *Q:
== END 2016-08-14 13:15 | disposition home or self-care (01) | DRG 254 ==
LOC: JP.ED 20:01 → JP.MS 21:29
PROVIDERS: ADMIT Family Medicine; ATTEND Hospitalist
PROC: 0DB48ZX Excision of Esophagogastric Junction, Via Natural or Artificial Opening Endoscopic, Diagnostic (ICD-10-PCS; principal; 2016-08-12)
PROC: 0DBL8ZX Excision of Transverse Colon, Via Natural or Artificial Opening Endoscopic, Diagnostic (ICD-10-PCS; 2016-08-14)
PROC: 0DBP8ZX Excision of Rectum, Via Natural or Artificial Opening Endoscopic, Diagnostic (ICD-10-PCS; 2016-08-14)
PROC: 0DBN8ZX Excision of Sigmoid Colon, Via Natural or Artificial Opening Endoscopic, Diagnostic (ICD-10-PCS; 2016-08-14)
DX: K92.1 Melena (principal); K92.2 Gastrointestinal hemorrhage, unspecified; D62 Acute posthemorrhagic anemia; I10 Essential (primary) hypertension; F17.210 Nicotine dependence, cigarettes, uncomplicated; F32.9 Major depressive disorder, single episode, unspecified; F10.229 Alcohol dependence with intoxication, unspecified; K70.30 Alcoholic cirrhosis of liver without ascites; K76.6 Portal hypertension; F12.90 Cannabis use, unspecified, uncomplicated; Y90.5 Blood alcohol level of 100-119 mg/100 ml; F11.10 Opioid abuse, uncomplicated; K57.30 Diverticulosis of large intestine without perforation or abscess without bleeding; D12.3 Benign neoplasm of transverse colon; D12.5 Benign neoplasm of sigmoid colon; D12.7 Benign neoplasm of rectosigmoid junction; K63.5 Polyp of colon
CPT/HCPCS: 36415; 74177; 80048; 80053; 80305; 81001; 82140; 82272; 82607; 82746; 83690; 84425; 85014; 85018; 85025; 85027; 85610; 85730; 86140; 86850; 86900; 86901; 86920; 86922; 88305; 93005; 94762; 96361; 96374; 96375; 96376; 99285-25; A9270-GY; C9113; G0480; J1170; J2060; J2250; J2270; J2704; J3010; J3480; J7030; J7040; Q9967

== ENCOUNTER 2020-06-03 18:34 | Emergency (ER) | payer MEDICAID, OTHER ==
[2020-06-03] MEDS ORDERED: Atenolol 25 MG Tab PO ONE ×2 (20:40→20:42)
[2020-06-03] MEDS ORDERED: Pantoprazole 40 MG Tab.CR PO SCH (20:45)
[2020-06-03] MEDS ORDERED: Gabapentin 400 MG Cap PO SCH (20:45)
[2020-06-03 21:06] VITALS: BP 143/84; PULSE 109
[2020-06-03] MEDS ORDERED: Sodium Chloride 0.9% 10 ML Syringe FLUSH PRN (21:08)
[2020-06-03] MEDS ORDERED: Iopamidol 612 MG/ML 100 ML Bottle IV SCH (21:30)
[2020-06-03] MEDS ORDERED: Sodium Chloride 0.9% 80 ML IV SCH (21:30)
--- NOTE | 2020-06-03 22:26 | CRLCT ---
INDICATION: Right upper lobe mass. COMPARISON: None available. TECHNIQUE: Axial CT images of the chest following the uneventful administration of IV contrast. Sagittal and coronal reformatted series were also generated and reviewed. FINDINGS: There is a large area of dense consolidation occupying a majority of the right upper lobe. This has internal areas of cavitation. There is some mild surrounding ground-glass and reticular opacities inferiorly in the right upper lobe. Left lung is clear. The central airways are patent. Heart size is normal. Scattered atherosclerotic calcification, including in the coronary arteries. Normal caliber aorta. Prominent mediastinal lymph nodes. For example, there is a precarinal node which measures 1.6 cm long axis. Prominent right peritracheal nodes, the larger of which measures 1.6 cm long axis. No pleural or pericardial effusion. Scattered small lymph nodes in the upper abdomen. No acute findings in the upper abdomen. There are no acute or aggressive osseous lesions. IMPRESSION: 1. Large area of consolidation in the right upper lobe with internal areas of cavitation. Primary differential considerations include necrotizing pneumonia and bronchogenic malignancy. PET-CT may provide additional diagnostic information, and should be considered. Image guided tissue sampling may be required for definitive diagnosis. 2. Prominent mediastinal lymph nodes, suspicious for metastatic disease. 3. Other findings, as above. Dictated by Gabriel Brumfield MD @ 06/03/2020 10:24:48 PM Please note that all CT scans at this facility use dose modulation, iterative reconstruction, and/or weight-based dosing when appropriate to reduce radiation dose to as low as reasonably achievable. Dictated by: Gabriel Brumfield MD @ 06/03/2020 22:25:40 (Electronically Signed)
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
--- NOTE | 2020-06-06 09:05 | CR ---
CHEST: 2 view CLINICAL HISTORY:Cough COMPARISON:None FINDINGS: There is a large masslike infiltrate involving the right upper lobe and apex with some central cavitation. Left lung is clear heart size and pulmonary vascular are normal. IMPRESSION: Masslike density with central cavitation occupying much of the right upper lobe and apex. This may represent malignancy or necrotizing pneumonia.
== END 2020-06-03 23:00 | disposition home or self-care (01) ==
LOC: JP.ED 18:34
DX: I11.0 Hypertensive heart disease with heart failure (principal); I50.43 Acute on chronic combined systolic (congestive) and diastolic (congestive) heart failure; R91.8 Other nonspecific abnormal finding of lung field; R60.0 Localized edema; Z79.899 Other long term (current) drug therapy; Z90.49 Acquired absence of other specified parts of digestive tract; Z87.891 Personal history of nicotine dependence
CPT/HCPCS: 36415; 71046; 71046-26; 71260; 80053; 83880; 85027; 86140; 99284; 99285-25; A9270-GY; Q9967

== ENCOUNTER 2021-02-21 01:25 | Emergency (ER) | payer MEDICAID ==
[2021-02-21 01:31] VITALS: BP 164/101; PULSE 120
[2021-02-21] MEDS ORDERED: Oxymetazoline 0.05% Nasal Spray 30 ML Bottle NAS PRN (03:21)
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
[2021-02-21] MEDS ORDERED: LORazepam 1 MG Tab PO ONE (03:22)
[2021-02-21] MEDS ORDERED: Folic Acid 1 MG Tab PO ONE (03:39)
[2021-02-21] MEDS ORDERED: Thiamine 100 MG Tab PO ONE (03:39)
== END 2021-02-21 15:57 | disposition home or self-care (01) ==
LOC: JP.ED 01:25
DX: U07.1 COVID-19 (principal); F10.20 Alcohol dependence, uncomplicated; H05.223 Edema of bilateral orbit; I10 Essential (primary) hypertension; E66.9 Obesity, unspecified; Z68.36 Body mass index [BMI] 36.0-36.9, adult; Z88.8 Allergy status to other drugs, medicaments and biological substances; Z79.899 Other long term (current) drug therapy; Z72.0 Tobacco use
CPT/HCPCS: 87635; 99285; A9270; U0002

== ENCOUNTER 2022-06-16 01:18 | Emergency (ER) | payer MEDICAID ==
[2022-06-16 01:58] LABS: ESTIMATED GFR 104 mL/min (>60)
[2022-06-16] MEDS ORDERED: Lactulose Soln 10 GM/15 ML 15 ML UD Cup PO ONE (04:07)
[2022-06-16] MEDS ORDERED: MVI, Adult with Vitamin K 10 ML, Thiamine 200 MG, Folic Acid 1 MG, Magnesium Sulfate 2 ... IV ONE ×10 (07:14→08:00)
[2022-06-16] MEDS ORDERED: LORazepam 2 MG/ML SDV IVPUSH ONE ×2 (10:25→14:57)
[2022-06-16] MEDS: Sodium Chloride 0.9% 10 ML Syringe FLUSH PRN ×2 (10:36→15:22)
[2022-06-16 15:26] VITALS: BP 134/83; PULSE 97
== END 2022-06-16 17:30 | disposition home or self-care (01) ==
LOC: JP.ED 01:18
DX: K76.82 Hepatic encephalopathy (principal); E72.20 Disorder of urea cycle metabolism, unspecified; K70.30 Alcoholic cirrhosis of liver without ascites; E11.9 Type 2 diabetes mellitus without complications; I10 Essential (primary) hypertension; Z88.8 Allergy status to other drugs, medicaments and biological substances; Z79.82 Long term (current) use of aspirin; Z20.822 Contact with and (suspected) exposure to COVID-19
CPT/HCPCS: 36415; 80053; 80305; 80307; 81001; 82140; 83690; 85025; 87635; 96365; 96366; 96375; 96376; 99284; A9270; J2060; J3411; J3475; J3490; J7121; U0002

== ENCOUNTER 2022-08-17 20:16 | Emergency (ER) | payer MEDICAID ==
[2022-08-17 20:53] VITALS: BP 112/55; PULSE 94
== END 2022-08-17 21:42 | disposition home or self-care (01) ==
LOC: JP.ED 20:16
DX: L03.116 Cellulitis of left lower limb (principal); I10 Essential (primary) hypertension; Z88.8 Allergy status to other drugs, medicaments and biological substances; Z79.82 Long term (current) use of aspirin; Z79.899 Other long term (current) drug therapy; Z72.0 Tobacco use
CPT/HCPCS: 99283